=== PATIENT | female | born 1950 | race Caucasian/White ===

== ENCOUNTER → 2025-05-08 07:28 | Outpatient (REF) | payer OTHER, SELFPAY | LOC: WDC 07:28 | PROVIDERS: ATTENDING PHYSICIAN Family Medicine | DX: Z78.0 Asymptomatic menopausal state (principal); Z12.31 Encounter for screening mammogram for malignant neoplasm of breast | CPT/HCPCS: 77063; 77067; 77080 ==

== ENCOUNTER 2025-06-18 06:23 | Day surgery (SDC) | payer OTHER, SELFPAY | END 2025-06-18 08:35 | disposition home or self-care (01) | LOC: GI 06:23 | PROVIDERS: ATTENDING PHYSICIAN Internal Medicine Gastroenterology | DX: Z12.11 Encounter for screening for malignant neoplasm of colon (principal); K64.8 Other hemorrhoids; K57.30 Diverticulosis of large intestine without perforation or abscess without bleeding; K63.5 Polyp of colon; K62.1 Rectal polyp; K63.89 Other specified diseases of intestine; Z86.0100 Personal history of colon polyps, unspecified; Z80.0 Family history of malignant neoplasm of digestive organs | CPT/HCPCS: 45385; 45380; 88305 ==